=== PATIENT | female | born 1940 | race Asian ===

== ENCOUNTER 2018-02-25 12:01 | Outpatient (CLI) | payer OTHER, MEDICAID | END 2018-02-25 19:39 | disposition home or self-care (01) | LOC: SRD 12:01 | PROVIDERS: ATTEND Internal Medicine | DX: M85.871 Other specified disorders of bone density and structure, right ankle and foot (principal); I70.8 Atherosclerosis of other arteries; M77.31 Calcaneal spur, right foot; E11.51 Type 2 diabetes mellitus with diabetic peripheral angiopathy without gangrene | CPT/HCPCS: 93923 ==